=== PATIENT | female | born 1955 | race Caucasian/White ===

== ENCOUNTER 2019-01-23 13:42 | Emergency (ER) | payer SELFPAY ==
--- NOTE | 2019-01-23 14:35 | CT ---
CT Brain WO Con: 01/23/2019 1:58 PM CLINICAL HISTORY: Fall. IMAGING TECHNIQUE: Multiple CT images were obtained of the brain without IV contrast. COMPARISON: None. FINDINGS: Brain: No acute infarct or hemorrhage is evident. No midline shift. Ventricles: Normal. No hydrocephalus.. Skull: Intact.. Visualized Paranasal sinuses: Clear.. Mastoid air cells:Clear. Extracranial soft tissues:There is a laceration involving the right parietal scalp. IMPRESSION: No acute intracranial abnormality.
== END 2019-01-23 14:19 | disposition home or self-care (01) ==
LOC: BURERS 13:42
DX: S01.01XA Laceration without foreign body of scalp, initial encounter (principal); F17.210 Nicotine dependence, cigarettes, uncomplicated; W18.30XA Fall on same level, unspecified, initial encounter
CPT/HCPCS: 12001; 70450